=== PATIENT | female | born 1985 | race African-American/Black ===

== ENCOUNTER 2024-07-30 03:14 | Emergency (ER) | payer SELFPAY ==
[~2024-07-30] VITALS: Ht 170.2 cm; Wt 95.0 kg
[2024-07-30 03:27] VITALS: TEMP 36.7; O2SAT 99
[2024-07-30] MEDS: METOCLOPRAMIDE HCL 10MG TABLET PO ONE (04:25)
[2024-07-30] MEDS: KETOROLAC 15MG/ML VIAL IM ONE (04:28)
[2024-07-30] MEDS: DIPHENHYDRAMINE 25MG CAPSULE PO ONE (04:50)
[2024-07-30] MEDS ORDERED: NAPR-1176 MT (04:53)
[2024-07-30 05:21] VITALS: BP 123/83; PULSE 97; RESP 16; O2SAT 99
== END 2024-07-30 05:35 | disposition home or self-care (01) ==
LOC: ER 03:14
DX: R51.9 Headache, unspecified (principal); Z88.0 Allergy status to penicillin
CPT/HCPCS: 96372; 99283; J8597; J1885; Z7610; Q0163